=== PATIENT | female | born 1980 ===

== ENCOUNTER 2017-02-24 09:16 | Inpatient (IN) | payer OTHER ==
[2017-02-24] MEDS ORDERED: Sodium Chloride 0.9% 1,000 ML IV STA (09:47)
--- NOTE | 2017-02-24 09:52 | ED PDOC ---
HPI: Abdomen Time Seen by Provider: 02/24/17 09:29 Chief Complaint (Nursing): Abdominal Pain History Per: Patient (presents to the ER for evaluation of abdominal pain that started about one month ago that has worsened over the past week with subjectie fever one week ago and nausea since last night but no vomiting. 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 Her LMP was one month ago. The pain is localized to the right lower quadrant area. There is no back pain.) Past Medical History Reviewed: Historical Data Vital Signs: Last Vital Signs Temp 97.1 F L 02/24/17 09:24 Pulse 79 02/24/17 09:24 Resp 20 02/24/17 09:24 BP 111/56 L 02/24/17 09:24 Pulse Ox 99 02/24/17 12:36 - Medical History PMH: No Chronic Diseases - Surgical History Surgical History: - Family History Family History: States: No Known Family Hx - Living Arrangements Living Arrangements: With Family - Social History Current smoker - smoking cessation education provided: No - Home Medications Home Medications: Ambulatory Orders Medication Instructions Recorded No Known Home Med 02/24/17 - Allergies Allergies/Adverse Reactions: Allergies Allergy/AdvReac Type Severity Reaction Status Date / Time No Known Allergies Allergy Verified 02/24/17 09:45 Review of Systems ROS Statement: Except As Marked, All Systems Reviewed And Found Negative Constitutional: Negative for: Fever, Chills Respiratory: Negative for: Cough Gastrointestinal: Positive for: Nausea, Abdominal Pain. Negative for: Vomiting , Diarrhea Genitourinary Female: Negative for: Dysuria, Frequency, Hematuria, Vaginal Discharge, Vaginal Bleeding Physical Exam - Reviewed Nursing Documentation Reviewed: Yes Vital Signs Reviewed: Yes - Physical Exam Appears: Positive for: Well, Non-toxic, No Acute Distress Head Exam: Positive for: ATRAUMATIC, NORMAL INSPECTION, NORMOCEPHALIC Skin: Positive for: Normal Color, Warm, DRY Eye Exam: Positive for: EOMI, Normal appearance, PERRL ENT: Positive for: Normal ENT Inspection Neck: Positive for: Normal, Painless ROM Cardiovascular/Chest: Positive for: Regular Rate, Rhythm Respiratory: Positive for: CNT, Normal Breath Sounds Gastrointestinal/Abdominal: Positive for: Normal Exam, Bowel Sounds, Soft, Tenderness (RLQ with guarding and rebound; mild tenderness on the right side.) Back: Positive for: Normal Inspection Extremity: Positive for: Normal ROM Neurologic/Psych: Positive for: Alert, Oriented - Laboratory Results Result Diagrams: 02/24/17 10:18 02/24/17 10:18 - ECG O2 Sat by Pulse Oximetry: 99 Medical Decision Making Medical Decision Making: US without acute findings. patient is hatch tender in the RLQ area. Will order CT 2.00 - per radiologist, patient has evidence of appendicitis on CT. Case d/w surgery resident. Will admit to hospitalist and consult Dr. Magdaleno. Disposition - Clinical Impression Clinical Impression: Appendicitis - Patient ED Disposition Is Patient to be Admitted: Yes Doctor Will See Patient In The: Hospital - Disposition Disposition: Transfer of Care Disposition Time: 14:12 Condition: FAIR Forms: Digital Performance (Greek) - Pt Status Changed To: Hospital Disposition Of: Inpatient - Admit Certification Admit to Inpatient:: After my assessment, the patient will require hospitalization for at least two midnights. This is because of the severity of symptoms shown, intensity of services needed, and/or the medical risk in this patient being treated as an outpatient. - POA Present On Arrival: None
[2017-02-24 10:22] LABS: BASO # 0.1 K/uL (0.0-0.2); BASO % 1.2 % (0.0-2.0); EOS # 0.2 K/uL (0.0-0.7); EOS % 1.9 % (0.0-4.0); HEMATOCRIT 35.5 % (34.0-47.0); LYMPH # 2.1 K/uL (1.0-4.3); LYMPH % 20.6 % (20.0-40.0); MEAN CORPUSCULAR HEMOGLOBIN 27.9 pg (27.0-31.0); MEAN CORPUSCULAR HGB CONC 33.9 g/dL (33.0-37.0); MONO # 0.9 K/uL (0.0-0.8); MONO % 8.9 % (0.0-10.0); NEUT % 67.4 % (50.0-75.0); NRBC % 0.1 % (0.0-0.0); RED CELL DISTRIBUTION WIDTH 14.1 % (11.5-14.5); WHITE BLOOD COUNT 10.4 K/uL (4.8-10.8)
[2017-02-24 10:24] LABS: MEAN CELL VOLUME 82.4 fl (81.0-99.0)
[2017-02-24 10:33] LABS: ALKALINE PHOSPHATASE 99 U/L (38-126); ALT/SGPT 29 U/L (9-52); AST/SGOT 25 U/L (14-36); BILIRUBIN,TOTAL 0.5 mg/dl (0.2-1.3); BLOOD UREA NITROGEN 12 mg/dl (7-17); CALCIUM 9.3 mg/dL (8.4-10.2); CARBON DIOXIDE 28 mmol/L (22-30); CHLORIDE 102 mmol/L (98-107); GFR AFRICAN-AMERICAN > 60; GLUCOSE,RANDOM 105 mg/dL (65-105); LIPASE 88 U/L (23-300); POTASSIUM 3.9 MMOL/L (3.6-5.0); SODIUM 140 mmol/l (132-148); TOTAL PROTEIN 8.4 G/DL (6.3-8.2)
[2017-02-24 10:43] LABS: ALB/GLOB RATIO 1.1 (1.0-2.1)
[2017-02-24 10:55] LABS: RBC URINE 2 /hpf (0-3); URINE BACTERIA OCC (<OCC); URINE BILIRUBIN NEGATIVE (NEGATIVE); URINE BLOOD NEGATIVE (NEGATIVE); URINE COLOR YELLOW (YELLOW); URINE GLUCOSE (UA) NEG (Normal); URINE KETONE NEGATIVE (NEGATIVE); URINE LEUKOCYTE ESTERASE NEG Leu/uL (Negative); URINE PROTEIN 30 mg/dL (NEGATIVE); URINE UROBILINOGEN 0.2-1.0 mg/dL (0.2-1.0); WBC URINE 1 /hpf (0-5)
[2017-02-24] MEDS ORDERED: Iohexol 300 100 ML IJ ONE (13:10)
--- NOTE | 2017-02-24 13:56 | CT ---
PROCEDURE: CT Abdomen and Pelvis with contrast HISTORY: RLQ pain x 1mos COMPARISON: Pelvic ultrasound 02/24/2017. TECHNIQUE: Contrast dose: Omnipaque 300, 95 cc. Radiation dose: Total exam DLP = 1093.92 mGy-cm. This CT exam was performed using one or more of the following dose reduction techniques: Automated exposure control, adjustment of the mA and/or kV according to patient size, and/or use of iterative reconstruction technique. FINDINGS: LOWER THORAX: Bilateral basilar dependent atelectasis is appreciated. LIVER: Diminished attenuation is seen throughout the liver compatible hepatic steatosis. No focal mass or biliary tree dilatation is appreciated within the liver. GALLBLADDER AND BILE DUCTS: Unremarkable. PANCREAS: Unremarkable. No gross lesion or ductal dilatation. SPLEEN: Unremarkable. ADRENALS: Unremarkable. No mass. KIDNEYS AND URETERS: Unremarkable. No hydronephrosis. No solid mass. VASCULATURE: Unremarkable. No aortic aneurysm. BOWEL: No bowel obstruction is appreciated however there is marked thickening of the cecal base and prominent periappendiceal reaction and trace fluid related. And appendicular is seen near the tip of the appendix and the appendix wall is grossly thickened the appendix is greater than 10 mm thick overall with the overall pattern most compatible with prominent appendicitis, potentially late stage without definite rupture appreciable at trace fluid or small cyst in the right adnexal compartment. This time. The bowel is not appear obstructed and the stomach is collapsed. APPENDIX: Abnormal findings and section immediately above. PERITONEUM: Unremarkable. No free fluid. No free air. LYMPH NODES: Unremarkable. No enlarged lymph nodes. BLADDER: Distended but thin/smooth walled. REPRODUCTIVE: Unremarkable. BONES: No acute fracture. OTHER FINDINGS: None. IMPRESSION: Findings most compatible with prominent appendicitis, potentially at a late stage without definite rupture pattern evident at this time. Edema extends from the appendix into the cecal base. Prominent periappendiceal reaction is identified. Hepatic steatosis. Findings discussed with Dr. Peña 02/24/2017 1:53 p.m..
[2017-02-24] MEDS ORDERED: Piperacillin/Tazobact 3.375 GM in Sodium Chloride 0.9% 100 ML IVPB STA (14:26)
--- NOTE | 2017-02-24 14:39 | US ---
HISTORY: RLQ pain for one month. urine preg negative Menstrual status: LMP December 2016 COMPARISON: February 23, 2017. CT abdomen and pelvis TECHNIQUE: Transabdominal only. Real-time technique with 2D, duplex and color Doppler FINDINGS: UTERUS: Measures 3.3 x 5.5 x 12.3 cm. Normal in size and appearance. No fibroid or other mass lesion seen. ENDOMETRIUM: Measures 2.4 mm in diameter. No ultrasound findings to suggest gestational sac, fluid, debris, mass or polyp or other pathologic process within the endometrium. CERVIX: No cervical abnormality identified. RIGHT OVARY: Measures 1.7 x 2.6 x 2.8 cm. No solid mass. Normal flow. LEFT OVARY: Measures 1 x 2.3 x 2.6 cm. No solid mass. Normal flow. FREE FLUID: No significant free fluid noted. OTHER FINDINGS: None. IMPRESSION: Unremarkable pelvic ultrasound.
--- NOTE | 2017-02-24 14:51 | CP.PCM.CON ---
History of Present Illness - History of Present Illness History of Present Illness: General surgery consult note for Dr. González Jaramillo, PGY-1 Pt S & E at bedside. 37F w/no sig PMH consulted for RLQ abdominal pain x 1 month. Pain started on , intermittent, varies in intensity, no radiation or localization. Pain exacerbated by movement/lifting/working. Not alleviated by Advil. Admits to nausea, anorexia. Denies emesis, F & C, changes in bowel or bladder habits/ urinary symptoms, back pain. LMP was one month ago- missed this month. In ED- CT abdomen - Findings most compatible with prominent appendicitis, potentially at a late stage without definite rupture pattern evident at this time. Edema extends from the appendix into the cecal base. Prominent periappendiceal reaction is identified. No leukocytosis, left shift or fevers. PMH: Denies PSH: x 1 All: NKDA SH: Denies ETOH, tobacco, or drug use LMP: one month ago Review of Systems - Review of Systems All systems: reviewed and no additional remarkable complaints except - Constitutional Constitutional: absent: Chills, Fever - EENT Nose/Mouth/Throat: absent: Sore Throat - Cardiovascular Cardiovascular: absent: Chest Pain - Gastrointestinal Gastrointestinal: Nausea. absent: Abdominal Pain, Change in Bowel Habits, Constipation, Diarrhea, Vomiting - Genitourinary Genitourinary: absent: Change in Urinary Stream, Dysuria - Musculoskeletal Musculoskeletal: absent: Back Pain - Psychiatric Psychiatric: Change in Appetite (poor) Past Patient History - Infectious Disease Hx of Infectious Diseases: None - Past Social History Smoking Status: Unknown If Ever Smoked - PSYCHIATRIC Hx Substance Use: No - SURGICAL HISTORY Hx Section: Yes Meds Allergies/Adverse Reactions: Allergies Allergy/AdvReac Type Severity Reaction Status Date / Time No Known Allergies Allergy Verified 02/24/17 09:45 - Medications Medications: Current Medications Piperacillin Sod/Tazobactam (Sod 3.375 gm/ Sodium Chloride) 100 mls @ 100 mls/ hr IVPB STAT STA PRN Reason: Protocol Stop: 02/24/17 15:25 Lactated Ringer's (Lactated Ringer's) 1,000 mls @ 100 mls/hr IV .Q10H JULIO Morphine Sulfate (Morphine) 2 mg IVP Q4 PRN PRN Reason: Pain, moderate (4-7) Morphine Sulfate (Morphine) 4 mg IVP Q4 PRN PRN Reason: Pain, severe (8-10) Ondansetron HCl (Zofran Inj) 4 mg IVP Q4 PRN PRN Reason: Nausea/Vomiting Physical Exam - Constitutional Appears: Non-toxic, No Acute Distress - Head Exam Head Exam: ATRAUMATIC, NORMAL INSPECTION, NORMOCEPHALIC - Eye Exam Eye Exam: EOMI, Normal appearance - ENT Exam ENT Exam: Mucous Membranes Moist, Normal Exam - Neck Exam Neck exam: Positive for: Full Rom, Normal Inspection - Respiratory Exam Respiratory Exam: Clear to Auscultation Bilateral, NORMAL BREATHING PATTERN. absent: Rales, Rhonchi, Wheezes, Respiratory Distress - Cardiovascular Exam Cardiovascular Exam: REGULAR RHYTHM, +S1, +S2 - GI/Abdominal Exam GI & Abdominal Exam: Guarding (RLQ), Normal Bowel Sounds, Soft, Tenderness (RLQ) . absent: Distended, Firm, Hernia, Rigid Additional comments: + McBurney's, -Rovsings, -psoas, -obturator - Extremities Exam Extremities exam: Positive for: normal inspection. Negative for: pedal edema - Neurological Exam Neurological exam: Alert, CN II-XII Intact, Oriented x3 - Psychiatric Exam Psychiatric exam: Normal Affect, Normal Mood - Skin Skin Exam: Dry, Intact, Normal Color, Warm Results - Vital Signs Recent Vital Signs: Last Vital Signs Temp 97.1 F L 02/24/17 09:24 Pulse 79 02/24/17 09:24 Resp 20 02/24/17 09:24 BP 111/56 L 02/24/17 09:24 Pulse Ox 99 02/24/17 14:12 - Labs Result Diagrams: 02/24/17 10:18 02/24/17 10:18 Labs: Laboratory Results - last 24 hr 02/24/17 02/24/17 02/24/17 10:18 10:18 10:27 WBC 10.4 RBC 4.30 Hgb 12.0 Hct 35.5 MCV 82.4 D MCH 27.9 MCHC 33.9 RDW 14.1 Plt Count 361 MPV 8.0 Neut % (Auto) 67.4 Lymph % (Auto) 20.6 [place] % (Auto) 8.9 Eos % (Auto) 1.9 Baso % (Auto) 1.2 Neut # 7.0 Lymph # 2.1 [place] # 0.9 H Eos # 0.2 Baso # 0.1 Sodium 140 Potassium 3.9 Chloride 102 Carbon Dioxide 28 Anion Gap 14 BUN 12 Creatinine 0.7 Est GFR ( Amer) > 60 Est GFR (Non-Af Amer) > 60 Random Glucose 105 Calcium 9.3 Total Bilirubin 0.5 AST 25 ALT 29 Alkaline Phosphatase 99 Total Protein 8.4 H Albumin 4.3 Globulin 4.1 H Albumin/Globulin Ratio 1.1 Lipase 88 Urine Color Yellow Urine Clarity Cloudy Urine pH 6.0 Ur Specific [place] 1.017 Urine Protein 30 Urine Glucose (UA) Neg Urine Ketones Negative Urine Blood Negative Urine Nitrate Negative Urine Bilirubin Negative Urine Urobilinogen 0.2-1.0 Ur Leukocyte Esterase Neg Urine RBC (Auto) 2 Urine Microscopic WBC 1 Ur Squamous Epith Cells 36 H Urine Bacteria Occ H Assessment & Plan - Assessment and Plan (Free Text) Assessment: 37F w/no sig PMH consulted for RLQ ab pain x 1 mo 2/2 appendicitis Plan: FU CXR FU EKG NPO IVF ABx Pain mgmt FUrther recs as per attending Will VENUS attending Ella, PGY-1 - Date & Time Date: 02/24/17 Time: 14:49
[2017-02-24] MEDS ORDERED: Piperacillin/Tazobact 3.375 gm Inj IVPB ONE (14:55)
[2017-02-24] MEDS: Lactated Ringer's 1,000 ML IV SCH (14:56)
--- NOTE | 2017-02-24 15:39 | RAD ---
PROCEDURE: CHEST RADIOGRAPH, 1 VIEW HISTORY: eval COMPARISON: None available. FINDINGS: LUNGS: Clear. PLEURA: No pneumothorax or pleural fluid seen. CARDIOVASCULAR: Normal. OSSEOUS STRUCTURES: No significant abnormalities. VISUALIZED UPPER ABDOMEN: Normal. OTHER FINDINGS: None. IMPRESSION: No active disease.
--- NOTE | 2017-02-24 16:26 | CP.PCM.HP ---
History of Present Illness - History of Present Illness History of Present Illness: This is a 37 year old female with no medical problems who came to the ED c/o abdominal pain present over the last month, worsening over the past week. The patient states she had fever x 1 week ago associated with some nausea. She denies any vomiting however. Her abdominal pain is located in the RLQ and described as sharp, crampy, and moderate in severity. She denies any back pain. Denies any recent travel or eating anything out of the ordinary. In the ED, the patient was found to have normal vitals, afebrile, and normal labwork including normal CBC. Abdominal CT scan however reveals late state appendicitis with marked thickening of the cecal base and prominent periappendiceal reaction with trace fluid related. General surgery is consulted and recommends likely conservative management at this time with close monitoring and IV antibiotics. Patient denies chest pain, shortness of breath, vomiting, diarrhea, headache. Rest of ROS as below. All of the patient's and/or family's questions were answered at the bedside. Present on Admission - Present on Admission Any Indicators Present on Admission: No Review of Systems - Hematologic/Lymphatic Additional comments: GENERAL/CONSTITUTIONAL: The patient admits to subjective fever. Denies fatigue, weakness, weight gain or weight loss. HEAD, EYES, EARS, NOSE AND THROAT: Eyes - The patient denies pain, redness, loss of vision, double or blurred vision, flashing lights or spots, dryness, Ears, nose, mouth and throat. The patient denies ringing in the ears, loss of hearing, nosebleeds, loss of sense of smell, dry sinuses, sinusitis, post nasal drip, CARDIOVASCULAR: The patient denies chest pain, chest pressure, or irregular heartbeats, RESPIRATORY: The patient denies chronic dry cough, coughing up blood, coughing up mucus, wheezing, or shortness of breath. GASTROINTESTINAL: The patient admits to abdominal pain as in HPI. Denies decreased appetite, vomiting, vomiting blood or coffee ground material, heartburn, regurgitation, diarrhea, constipation, gas, blood in the stools, black tarry stools. GENITOURINARY: The patient denies difficult urination, pain or burning with urination, blood in the urine, frequency, or urgency MUSCULOSKELETAL: The patient denies arm, buttock, thigh or calf cramps. No joint or muscle pain. No muscle weakness or tenderness. No joint swelling, neck pain, back pain. SKIN: The patient denies easy bruising, skin redness, skin rash, hives, sensitivity to sun exposure, tightness, nodules or bumps, hair loss, color changes in the hands or feet with cold. NEUROLOGIC: The patient denies headache, dizziness, fainting, muscle spasm, loss of consciousness, sensitivity or pain in the hands and feet or memory loss. PSYCHIATRIC: The patient denies anxiety, depression, or thoughts of suicide. ENDOCRINE: The patient denies intolerance to hot or cold temperature, flushing, fingernail changes, increased thirst, or increased salt intake HEMATOLOGIC/LYMPHATIC: The patient denies anemia, bleeding tendency or clotting tendency. ALLERGIC/IMMUNOLOGIC: The patient denies rhinitis, asthma, skin sensitivity, latex allergies or sensitivity. Past Patient History - Infectious Disease Hx of Infectious Diseases: None - Past Medical History & Family History Past Medical History?: No Past Family History: Reviewed and not pertinent - Past Social History Smoking Status: Never Smoked Alcohol: None - PSYCHIATRIC Hx Substance Use: No - SURGICAL HISTORY Hx Section: Yes Meds Allergies/Adverse Reactions: Allergies Allergy/AdvReac Type Severity Reaction Status Date / Time No Known Allergies Allergy Verified 02/24/17 09:45 Physical Exam - Additional Findings Additional findings: Physical exam: Constitutional- cooperative, awake, alert. Head- NCAT, PERRL Eye- PERRL, normal accommodation ENT- normal exam, MMM. Neck- normal inspection, supple, no JVD Respiratory- CTAB, no wheezes rales rhonchi Cardiovascular- RRR, +S1, +S2 no MRG GI/Abdominal- normal bowel sounds, soft, tender to right lower quadrant, no mass , no hsm Skin- warm, dry Extremities Exam- normal capillary refill, normal inspection Neurological Exam- alert, stable gait Psych- normal mood, normal affect Results - Vital Signs Recent Vital Signs: Last Vital Signs Temp 98.6 F 02/24/17 15:58 Pulse 71 02/24/17 15:58 Resp 20 02/24/17 09:24 BP 101/64 02/24/17 15:58 Pulse Ox 98 02/24/17 15:58 - Labs Result Diagrams: 02/24/17 10:18 02/24/17 10:18 Labs: Laboratory Results - last 24 hr 02/24/17 02/24/17 02/24/17 10:18 10:18 10:27 WBC 10.4 RBC 4.30 Hgb 12.0 Hct 35.5 MCV 82.4 D MCH 27.9 MCHC 33.9 RDW 14.1 Plt Count 361 MPV 8.0 Neut % (Auto) 67.4 Lymph % (Auto) 20.6 [place] % (Auto) 8.9 Eos % (Auto) 1.9 Baso % (Auto) 1.2 Neut # 7.0 Lymph # 2.1 [place] # 0.9 H Eos # 0.2 Baso # 0.1 Sodium 140 Potassium 3.9 Chloride 102 Carbon Dioxide 28 Anion Gap 14 BUN 12 Creatinine 0.7 Est GFR ( Amer) > 60 Est GFR (Non-Af Amer) > 60 Random Glucose 105 Calcium 9.3 Total Bilirubin 0.5 AST 25 ALT 29 Alkaline Phosphatase 99 Total Protein 8.4 H Albumin 4.3 Globulin 4.1 H Albumin/Globulin Ratio 1.1 Lipase 88 Urine Color Yellow Urine Clarity Cloudy Urine pH 6.0 Ur Specific [place] 1.017 Urine Protein 30 Urine Glucose (UA) Neg Urine Ketones Negative Urine Blood Negative Urine Nitrate Negative Urine Bilirubin Negative Urine Urobilinogen 0.2-1.0 Ur Leukocyte Esterase Neg Urine RBC (Auto) 2 Urine Microscopic WBC 1 Ur Squamous Epith Cells 36 H Urine Bacteria Occ H Assessment & Plan - Assessment and Plan (Free Text) Plan: ASSESSMENT/PLAN 1) Late stage appendicitis - Observation on med/surg - Consultation with Dr. Magdaleno appreciated- will f/u with recs - NPO status - IV fluis - Cipro/Flagyl for IV abx - Possible d/c tomorrow with po antibiotics if no surgery planned at this time 2) DVT prophylaxis - SCDs
[2017-02-24] MEDS: metroNIDAZOLE 500mg/100ml NS 100 ML IVPB SCH (17:16)
[2017-02-24] MEDS ORDERED: Influenza Vaccine 18yr & older 0.5 ML/45 MCG SYR IM ONE (18:56)
[2017-02-24] MEDS: Ciprofloxacin 200mg/100ml D5W 100 ML IVPB SCH (20:08)
[2017-02-25] MEDS: metroNIDAZOLE 500mg/100ml NS 100 ML IVPB SCH ×3 (00:59→16:51)
[2017-02-25] MEDS: Lactated Ringer's 1,000 ML IV SCH ×3 (01:00→11:12)
[2017-02-25 08:18] LABS: BASO # 0.1 K/uL (0.0-0.2); BASO % 0.6 % (0.0-2.0); EOS # 0.4 K/uL (0.0-0.7); EOS % 3.7 % (0.0-4.0); HEMATOCRIT 33.4 % (34.0-47.0); LYMPH # 1.9 K/uL (1.0-4.3); LYMPH % 19.7 % (20.0-40.0); MEAN CELL VOLUME 83.7 fl (81.0-99.0); MEAN CORPUSCULAR HEMOGLOBIN 27.2 pg (27.0-31.0); MEAN CORPUSCULAR HGB CONC 32.5 g/dL (33.0-37.0); MEAN PLATELET VOLUME 8.2 fl (7.2-11.7); MONO # 0.8 K/uL (0.0-0.8); MONO % 8.7 % (0.0-10.0); NEUT # 6.3 K/uL (1.8-7.0); NEUT % 67.3 % (50.0-75.0); RED CELL DISTRIBUTION WIDTH 13.9 % (11.5-14.5); WHITE BLOOD COUNT 9.4 K/uL (4.8-10.8)
--- NOTE | 2017-02-25 08:19 | CP.PCM.PN ---
Subjective - Date & Time of Evaluation Date of Evaluation: 02/25/17 Time of Evaluation: 07:00 - Subjective Subjective: General surgery progress note for Dr. González Jaramillo, PGY-1 Pt S & E at beside. Pt reports abdominal pain much improved from yesterday. Denies N & V, F & C, other complaints. Objective - Vital Signs/Intake and Output Vital Signs (last 24 hours): Temp Pulse Resp BP Pulse Ox 97.8 F 63 18 95/61 L 100 02/25/17 07:30 02/25/17 07:30 02/25/17 07:30 02/25/17 07:30 02/25/17 07:30 - Medications Medications: Current Medications Enoxaparin Sodium (Lovenox) 40 mg SC DAILY JULIO PRN Reason: Protocol Lactated Ringer's (Lactated Ringer's) 1,000 mls @ 100 mls/hr IV .Q10H [facility] Last Admin: 02/25/17 04:57 Dose: 100 mls/hr Ciprofloxacin (Cipro 200mg/100ml D5w) 100 mls @ 100 mls/hr IVPB Q12 [facility] Last Admin: 02/24/17 20:08 Dose: 100 mls/hr Metronidazole (Flagyl 500mg/100ml Ns) 100 mls @ 100 mls/hr IVPB Q8 JULIO PRN Reason: Protocol Last Admin: 02/25/17 00:59 Dose: 100 mls/hr Morphine Sulfate (Morphine) 2 mg IVP Q4 PRN PRN Reason: Pain, moderate (4-7) Morphine Sulfate (Morphine) 4 mg IVP Q4 PRN PRN Reason: Pain, severe (8-10) Ondansetron HCl (Zofran Inj) 4 mg IVP Q4 PRN PRN Reason: Nausea/Vomiting - Labs Labs: 02/24/17 10:18 02/24/17 10:18 - Constitutional Appears: Non-toxic, No Acute Distress - Head Exam Head Exam: ATRAUMATIC, NORMAL INSPECTION, NORMOCEPHALIC - Eye Exam Eye Exam: EOMI, Normal appearance - ENT Exam ENT Exam: Mucous Membranes Moist, Normal Exam - Neck Exam Neck Exam: Full ROM, Normal Inspection - Respiratory Exam Respiratory Exam: NORMAL BREATHING PATTERN - Cardiovascular Exam Cardiovascular Exam: REGULAR RHYTHM, +S1, +S2 - GI/Abdominal Exam GI & Abdominal Exam: Soft, Tenderness (minimal, RLQ). absent: Distended, Firm, Guarding, Rigid, Mass, Rebound - Extremities Exam Extremities Exam: Normal Inspection. absent: Pedal Edema - Neurological Exam Neurological Exam: Alert, Awake, CN II-XII Intact, Oriented x3 - Psychiatric Exam Psychiatric exam: Normal Affect, Normal Mood - Skin Skin Exam: Dry, Intact, Normal Color, Warm Assessment and Plan - Assessment and Plan (Free Text) Assessment: 37F w/abdominal pain 2/2 appendicitis - resolving Plan: Will advance to [facility]- monitor for tolerance Cont Abx Cont IVF Cont pain meds Further mgmt as per primary team Further recs as per attending Will VENUS attending Ella, PGY-1
[2017-02-25] MEDS: Enoxaparin 40 mg Syringe SC SCH (08:56)
[2017-02-25] MEDS: Ciprofloxacin 200mg/100ml D5W 100 ML IVPB SCH ×2 (10:00→20:06)
--- NOTE | 2017-02-25 14:58 | CP.PCM.PN ---
Subjective - Date & Time of Evaluation Date of Evaluation: 02/25/17 Time of Evaluation: 08:00 - Subjective Subjective: Patient seen and examined bedside. Feeling better. Still with some RLQ discomfort .Hemodynamically stable, afebrile WBC 9 K Objective - Vital Signs/Intake and Output Vital Signs (last 24 hours): Temp Pulse Resp BP Pulse Ox 97.8 F 63 18 95/61 L 100 02/25/17 07:30 02/25/17 07:30 02/25/17 07:30 02/25/17 07:30 02/25/17 07:30 - Medications Medications: Current Medications Enoxaparin Sodium (Lovenox) 40 mg SC DAILY JULIO PRN Reason: Protocol Last Admin: 02/25/17 08:56 Dose: Not Given Lactated Ringer's (Lactated Ringer's) 1,000 mls @ 100 mls/hr IV .Q10H [facility] Last Admin: 02/25/17 11:12 Dose: Not Given Ciprofloxacin (Cipro 200mg/100ml D5w) 100 mls @ 100 mls/hr IVPB Q12 JULIO Last Admin: 02/25/17 10:00 Dose: 100 mls/hr Metronidazole (Flagyl 500mg/100ml Ns) 100 mls @ 100 mls/hr IVPB Q8 JULIO PRN Reason: Protocol Last Admin: 02/25/17 08:54 Dose: 100 mls/hr Morphine Sulfate (Morphine) 2 mg IVP Q4 PRN PRN Reason: Pain, moderate (4-7) Morphine Sulfate (Morphine) 4 mg IVP Q4 PRN PRN Reason: Pain, severe (8-10) Ondansetron HCl (Zofran Inj) 4 mg IVP Q4 PRN PRN Reason: Nausea/Vomiting - Labs Labs: 02/25/17 06:30 02/24/17 10:18 - Constitutional Appears: Non-toxic, No Acute Distress - Head Exam Head Exam: ATRAUMATIC, NORMAL INSPECTION, NORMOCEPHALIC - Eye Exam Eye Exam: EOMI, Normal appearance, PERRL Pupil Exam: NORMAL ACCOMODATION - ENT Exam ENT Exam: Mucous Membranes Moist, Normal Exam - Neck Exam Neck Exam: Full ROM, Normal Inspection - Respiratory Exam Respiratory Exam: Clear to Ausculation Bilateral, NORMAL BREATHING PATTERN. absent: Rales, Rhonchi, Wheezes - Cardiovascular Exam Cardiovascular Exam: REGULAR RHYTHM, RRR, +S1, +S2. absent: JVD - GI/Abdominal Exam GI & Abdominal Exam: Tenderness (RLQ with deep palpation), Hypoactive Bowel Sounds, Normal Bowel Sounds. absent: Distended, Guarding, Rebound - Rectal Exam Rectal Exam: Deferred - Extremities Exam Extremities Exam: Full ROM, Normal Capillary Refill, Normal Inspection. absent : Pedal Edema - Back Exam Back Exam: NORMAL INSPECTION - Neurological Exam Neurological Exam: Alert, Awake, CN II-XII Intact, Oriented x3 - Psychiatric Exam Psychiatric exam: Normal Affect, Normal Mood - Skin Skin Exam: Dry, Intact, Normal Color, Warm Assessment and Plan - Assessment and Plan (Free Text) Assessment: 37 year old female with no medical problems came to ED with abdominal pain present over the last month, worsening over the past week. The patient states she had fever x 1 week ago associated with some nausea. She denies any vomiting however. Her abdominal pain is located in the RLQ and described as sharp, crampy , and moderate in severity. She denies any back pain. Denies any recent travel or eating anything out of the ordinary. In the ED, the patient was found to have normal vitals, afebrile, and normal labwork including normal CBC. Abdominal CT scan however reveals late state appendicitis with marked thickening of the cecal base and prominent periappendiceal reaction with trace fluid related. General surgery is consulted and recommends likely conservative management at this time with close monitoring and IV antibiotics. 1.Late stage appendicitis surgery consulted and case discussed with Continue IV antibiotic, Cipro and Flagyl elective lap appendectomy as outpatient Start Po diet Continue pain management 2.DVT prophylaxis SCDs lovenox
[2017-02-26] MEDS: metroNIDAZOLE 500mg/100ml NS 100 ML IVPB SCH ×2 (00:24→08:08)
[2017-02-26 07:19] VITALS: BP 91/56; PULSE 55; RESP 20; TEMP 97.7; O2SAT 100
[2017-02-26 07:48] LABS: HEMATOCRIT 36.4 % (34.0-47.0); MEAN CORPUSCULAR HEMOGLOBIN 27.3 pg (27.0-31.0); MEAN CORPUSCULAR HGB CONC 32.5 g/dL (33.0-37.0); RED CELL DISTRIBUTION WIDTH 13.9 % (11.5-14.5)
[2017-02-26 07:54] LABS: BLOOD UREA NITROGEN 12 mg/dl (7-17); CARBON DIOXIDE 28 mmol/L (22-30); CHLORIDE 102 mmol/L (98-107); GFR AFRICAN-AMERICAN > 60; GLUCOSE,RANDOM 108 mg/dL (65-105); POTASSIUM 3.8 MMOL/L (3.6-5.0); SODIUM 139 mmol/l (132-148)
[2017-02-26] MEDS: Ciprofloxacin 200mg/100ml D5W 100 ML IVPB SCH (08:09)
[2017-02-26] MEDS: Enoxaparin 40 mg Syringe SC SCH (08:10)
--- NOTE | 2017-02-26 09:38 | CP.PCM.PN ---
Subjective - Date & Time of Evaluation Date of Evaluation: 02/26/17 Time of Evaluation: 07:45 - Subjective Subjective: General surgery progress note for Dr. González Jaramillo, PGY-1 Pt S & E at beside. Pt reports abdominal pain resolved, is tolerating a regular diet. Denies N & V, F & C, other complaints. Objective - Vital Signs/Intake and Output Vital Signs (last 24 hours): Temp Pulse Resp BP Pulse Ox 97.7 F 55 L 20 91/56 L 100 02/26/17 07:19 02/26/17 07:19 02/26/17 07:19 02/26/17 07:19 02/26/17 07:19 - Medications Medications: Current Medications Enoxaparin Sodium (Lovenox) 40 mg SC DAILY JULIO PRN Reason: Protocol Last Admin: 02/26/17 08:10 Dose: Not Given Ciprofloxacin (Cipro 200mg/100ml D5w) 100 mls @ 100 mls/hr IVPB Q12 JULIO Last Admin: 02/26/17 08:09 Dose: 100 mls/hr Metronidazole (Flagyl 500mg/100ml Ns) 100 mls @ 100 mls/hr IVPB Q8 JULIO PRN Reason: Protocol Last Admin: 02/26/17 08:08 Dose: 100 mls/hr Morphine Sulfate (Morphine) 2 mg IVP Q4 PRN PRN Reason: Pain, moderate (4-7) Morphine Sulfate (Morphine) 4 mg IVP Q4 PRN PRN Reason: Pain, severe (8-10) Ondansetron HCl (Zofran Inj) 4 mg IVP Q4 PRN PRN Reason: Nausea/Vomiting - Labs Labs: 02/26/17 05:30 02/26/17 05:30 - Constitutional Appears: Non-toxic, No Acute Distress - Head Exam Head Exam: ATRAUMATIC, NORMAL INSPECTION, NORMOCEPHALIC - Eye Exam Eye Exam: EOMI, Normal appearance - ENT Exam ENT Exam: Mucous Membranes Moist, Normal Exam - Neck Exam Neck Exam: Full ROM, Normal Inspection - Respiratory Exam Respiratory Exam: NORMAL BREATHING PATTERN - Cardiovascular Exam Cardiovascular Exam: REGULAR RHYTHM, +S1, +S2 - GI/Abdominal Exam GI & Abdominal Exam: Soft, Normal Bowel Sounds. absent: Distended, Firm, Guarding, Rigid, Tenderness, Hernia, Mass, Rebound - Extremities Exam Extremities Exam: Normal Inspection. absent: Pedal Edema - Neurological Exam Neurological Exam: Alert, Awake, CN II-XII Intact, Oriented x3 - Psychiatric Exam Psychiatric exam: Normal Affect, Normal Mood - Skin Skin Exam: Dry, Intact, Normal Color, Warm Assessment and Plan - Assessment and Plan (Free Text) Assessment: 37F w/abdominal pain 2/2 appendicitis - resolved Plan: Tolerating regular diet Ok to send home on PO Abx for 12 more days from surgical standpoint Can follow up with Dr. Magdaleno in the office to discuss elective appendectomy Further mgmt as per primary team DW attending Ella, PGY-1
--- NOTE | 2017-02-26 09:59 | CP.PCM.DIS ---
Provider - Provider Date of Admission: 02/25/17 15:02 Attending physician: El Scruggs DO Time Spent in preparation of Discharge (in minutes): 30 Diagnosis - Discharge Diagnosis (1) Appendicitis Status: Acute Hospital Course - Lab Results Lab Results: Micro Results 02/24/17 15:43 Blood Blood Culture - Preliminary NO GROWTH AFTER 24 HOURS 02/24/17 15:05 Blood Blood Culture - Preliminary NO GROWTH AFTER 24 HOURS Most Recent Lab Values WBC 8.0 K/uL (4.8-10.8) 02/26/17 05:30 RBC 4.34 Mil/uL (3.80-5.20) 02/26/17 05:30 Hgb 11.8 g/dL (12.0-16.0) L 02/26/17 05:30 Hct 36.4 % (34.0-47.0) 02/26/17 05:30 MCV 84.0 fl (81.0-99.0) 02/26/17 05:30 MCH 27.3 pg (27.0-31.0) 02/26/17 05:30 MCHC 32.5 g/dL (33.0-37.0) L 02/26/17 05:30 RDW 13.9 % (11.5-14.5) 02/26/17 05:30 Plt Count 383 K/uL (130-400) 02/26/17 05:30 MPV 8.2 fl (7.2-11.7) 02/25/17 06:30 Neut % (Auto) 67.3 % (50.0-75.0) 02/25/17 06:30 Lymph % (Auto) 19.7 % (20.0-40.0) L 02/25/17 06:30 [place] % (Auto) 8.7 % (0.0-10.0) 02/25/17 06:30 Eos % (Auto) 3.7 % (0.0-4.0) 02/25/17 06:30 Baso % (Auto) 0.6 % (0.0-2.0) 02/25/17 06:30 Neut # 6.3 K/uL (1.8-7.0) 02/25/17 06:30 Lymph # 1.9 K/uL (1.0-4.3) 02/25/17 06:30 [place] # 0.8 K/uL (0.0-0.8) 02/25/17 06:30 Eos # 0.4 K/uL (0.0-0.7) 02/25/17 06:30 Baso # 0.1 K/uL (0.0-0.2) 02/25/17 06:30 Sodium 139 mmol/l (132-148) 02/26/17 05:30 Potassium 3.8 MMOL/L (3.6-5.0) 02/26/17 05:30 Chloride 102 mmol/L (98-107) 02/26/17 05:30 Carbon Dioxide 28 mmol/L (22-30) 02/26/17 05:30 Anion Gap 13 (10-20) 02/26/17 05:30 BUN 12 mg/dl (7-17) 02/26/17 05:30 Creatinine 0.8 mg/dl (0.7-1.2) 02/26/17 05:30 Est GFR ( Amer) > 60 02/26/17 05:30 Est GFR (Non-Af Amer) > 60 02/26/17 05:30 Random Glucose 108 mg/dL (65-105) H 02/26/17 05:30 Calcium 9.0 mg/dL (8.4-10.2) 02/26/17 05:30 Total Bilirubin 0.5 mg/dl (0.2-1.3) 02/24/17 10:18 AST 25 U/L (14-36) 02/24/17 10:18 ALT 29 U/L (9-52) 02/24/17 10:18 Alkaline Phosphatase 99 U/L (38-126) 02/24/17 10:18 Total Protein 8.4 G/DL (6.3-8.2) H 02/24/17 10:18 Albumin 4.3 g/dL (3.5-5.0) 02/24/17 10:18 Globulin 4.1 gm/dL (2.2-3.9) H 02/24/17 10:18 Albumin/Globulin Ratio 1.1 (1.0-2.1) 02/24/17 10:18 Lipase 88 U/L (23-300) 02/24/17 10:18 Urine Color Yellow (YELLOW) 02/24/17 10:27 Urine Clarity Cloudy (Clear) 02/24/17 10:27 Urine pH 6.0 (5.0-8.0) 02/24/17 10:27 Ur Specific [place] 1.017 (1.003-1.030) 02/24/17 10:27 Urine Protein 30 mg/dL (NEGATIVE) 02/24/17 10:27 Urine Glucose (UA) Neg mg/dL (Normal) 02/24/17 10:27 Urine Ketones Negative mg/dL (NEGATIVE) 02/24/17 10:27 Urine Blood Negative (NEGATIVE) 02/24/17 10:27 Urine Nitrate Negative (NEGATIVE) 02/24/17 10:27 Urine Bilirubin Negative (NEGATIVE) 02/24/17 10:27 Urine Urobilinogen 0.2-1.0 mg/dL (0.2-1.0) 02/24/17 10:27 Ur Leukocyte Esterase Neg [place]/uL (Negative) 02/24/17 10:27 Urine RBC (Auto) 2 /hpf (0-3) 02/24/17 10:27 Urine Microscopic WBC 1 /hpf (0-5) 02/24/17 10:27 Ur Squamous Epith Cells 36 /hpf (0-5) H 02/24/17 10:27 Urine Bacteria Occ (<OCC) H 02/24/17 10:27 - Hospital Course Hospital Course: 37 year old female with no medical problems came to ED with abdominal pain present over the last month, worsening over the past week. The patient states she had fever x 1 week ago associated with some nausea. She denies any vomiting however. Her abdominal pain is located in the RLQ and described as sharp, crampy , and moderate in severity. She denies any back pain. Denies any recent travel or eating anything out of the ordinary. In the ED, the patient was found to have normal vitals, afebrile, and normal labwork including normal CBC. Abdominal CT scan however reveals late state appendicitis with marked thickening of the cecal base and prominent periappendiceal reaction with trace fluid related. General surgery is consulted and recommends likely conservative management at this time with close monitoring and IV antibiotics. 1.Late stage appendicitis surgery consulted and case discussed with per surgery stable to discharge with PO abx. Continue PO antibiotic, Cipro and Flagyl elective lap appendectomy as outpatient Start Po diet Continue pain management 2.DVT prophylaxis SCDs lovenox STABLE FOR DC HOME WITH PO ABX AND FOLLOW UP WITH PCP AND SURGERY IN ABOUT ONE WEEK Discharge Exam - Head Exam Head Exam: ATRAUMATIC, NORMAL INSPECTION, NORMOCEPHALIC - Eye Exam Eye Exam: EOMI, Normal appearance, PERRL Pupil Exam: NORMAL ACCOMODATION - ENT Exam ENT Exam: Mucous Membranes Moist, Normal Oropharynx - Respiratory Exam Respiratory Exam: Clear to PA & Lateral, NORMAL BREATHING PATTERN - Cardiovascular Exam Cardiovascular Exam: RRR, +S1, +S2 - GI/Abdominal Exam GI & Abdominal Exam: Normal Bowel Sounds, Soft. absent: Organomegaly, Pulsatile Mass, Tenderness - Extremities Exam Extremities exam: normal capillary refill, pedal pulses present - Back Exam Back exam: absent: CVA tenderness (L), CVA tenderness (R) - Neurological Exam Neurological exam: Alert, Oriented x3, Reflexes Normal - Psychiatric Exam Psychiatric exam: Normal Affect, Normal Mood - Skin Skin Exam: Dry, Normal Color, Warm Discharge Plan - Discharge Medications Prescriptions: Ciprofloxacin HCl [Cipro] 500 mg PO BID #14 tablet Metronidazole [Flagyl] 500 mg PO TID #21 tablet - Follow Up Plan Condition: FAIR Disposition: HOME/ ROUTINE Instructions: Appendicitis (DC), Appendicitis (GEN) Referrals: [facility] [Outside]
--- NOTE | 2017-02-26 10:07 | CARD ---
APPROVED REPORT EKG Measurement Heart [id number] <Conclusion> Normal sinus rhythm Normal ECG
== END 2017-02-26 13:10 | disposition home or self-care (01) | DRG 189 ==
LOC: H.ER 09:16 → H.ERHOLD 14:22 → INTOOBSV 14:22 → H.MEDSURG1 16:26 → OBSVTOIN 02-25 15:02
PROVIDERS: ADMIT Internal Medicine; ATTEND Internal Medicine
DX: K35.80 Unspecified acute appendicitis (principal)